=== PATIENT | male | born 1945 | race Caucasian/White ===

== ENCOUNTER 2024-10-02 05:25 | Day surgery (SDC) | payer OTHER ==
[~2024-10-02 05:25] MED LIST: AVAPRO300 MG; BENADRYL50 MG; CLINDAMYCIN HC300 MG; CRESTOR10 MG; DICLOFENAC SODI50 MG PO; GLIMEPIRIDE4 MG; METFORMIN HCL750 MG; NABUMETONE500 MG; ZYRTEC1 MG/ML
[2024-10-02] MEDS ORDERED: fentaNYL CITRATE 50 MCG/ML AMPUL IV PUSH ONE (12:00)
[2024-10-02] MEDS ORDERED: MIDAZOLAM HCL 2 MG/2 ML VIAL IV ONE (12:00)
[2024-10-02] MEDS ORDERED: ONDANSETRON HCL 2 MG/ML VIAL IV ONE (12:00)
[2024-10-02] MEDS ORDERED: DIPHENHYDRAMINE HCL 50 MG/ML VIAL 1ML IV ONE (12:00)
== END 2024-10-02 13:45 | disposition home or self-care (01) ==
LOC: AMB-ENDOS 05:25
PROVIDERS: ATTEND Colon & Rectal Surgery
DX: D12.5 Benign neoplasm of sigmoid colon (principal); R19.4 Change in bowel habit; K57.30 Diverticulosis of large intestine without perforation or abscess without bleeding; Z12.11 Encounter for screening for malignant neoplasm of colon

== ENCOUNTER 2024-12-25 06:43 | Day surgery (SDC) | payer OTHER ==
[2024-12-25] MEDS ORDERED: fentaNYL CITRATE 50 MCG/ML AMPUL IV PUSH ONE (10:30)
[2024-12-25] MEDS ORDERED: DIPHENHYDRAMINE HCL 50 MG/ML VIAL 1ML IV ONE (10:30)
[2024-12-25] MEDS ORDERED: ONDANSETRON HCL 2 MG/ML VIAL IV ONE (10:30)
[2024-12-25] MEDS ORDERED: MIDAZOLAM HCL 2 MG/2 ML VIAL IV ONE (10:30)
== END 2024-12-25 11:35 | disposition home or self-care (01) ==
LOC: AMB-ENDOS 06:43
PROVIDERS: ATTEND Colon & Rectal Surgery
DX: D12.5 Benign neoplasm of sigmoid colon (principal); D12.2 Benign neoplasm of ascending colon; K57.30 Diverticulosis of large intestine without perforation or abscess without bleeding; K63.5 Polyp of colon